=== PATIENT | male | born 1995 | race African-American/Black ===

== ENCOUNTER 2016-03-19 11:02 | Emergency (ER) | payer OTHER ==
[2016-03-19] MEDS ORDERED: SODIUM CHLORIDE 0.9% 1,000 ML ONE (11:52)
[2016-03-19] MEDS ORDERED: ONDANSETRON 4 MG VIAL ONE (11:52)
[2016-03-19] MEDS ORDERED: ONDANSETRON ODT 4 MG TAB ONE (12:22)
== END 2016-03-19 15:28 | disposition home or self-care (01) ==
LOC: ER 11:02
DX: B34.9 Viral infection, unspecified (principal); R11.2 Nausea with vomiting, unspecified
CPT/HCPCS: 36415; 74022; 80053; 81001; 85025; 87804; 96361; 96374; 99284; J2405